=== PATIENT | female | born 1990 | race Caucasian/White ===

== ENCOUNTER 2016-08-05 09:55 | Outpatient (CLI) | payer MEDICAID ==
--- NOTE | 2016-08-05 10:55 | Non Stress Test Report ---
Non Stress Test Datetime Report Generated by CPN: 08/05/2016 10:55 DEMOGRAPHIC Test Number: 1 EGA NST: 34.3 INDICATION Indication for Study: Ordered by Provider; Other Indication for Study (NST) Other: Abdominal and back pain MONITORING Monitor Explained: Monitor Explained; Test Explained; Patient Verbalized Understanding Time on Monitor: 08/05/2016 10:25 Time off Monitor: 08/05/2016 10:54 NST Duration: 29 NST INTERVENTIONS NST Interventions: None Physician Notified NST: Dr Neilsen BABY A: [id number] BABY A Movement : Present Contraction Frequency : None FHR Baseline : 145 Accelerations : 15X15 Variability : Moderate 6-25bpm NST Review: Meets Criteria for Reactive NST NST Review and Verified By : H. Raya, RN NST Results: Reactive NST REPORT Report Trigger: Send Report
[2016-08-05 10:59] LABS: APPEARANCE,URINE SLIGHTLY-CLOUDY; BILIRUBIN,URINE NEGATIVE (NEGATIVE); GLUCOSE, URINE NEGATIVE (NEGATIVE); KETONES,URINE NEGATIVE (NEGATIVE); LEUKOCYTE ESTERASE,URINE NEGATIVE (NEGATIVE); NITRITE,URINE NEGATIVE (NEGATIVE); PROTEIN,URINE NEGATIVE (NEGATIVE); URINE SPECIFIC GRAVITY 1.012; UROBILINOGEN,URINE NEGATIVE mg/dL (<2.0)
[2016-08-05 11:21] LABS: URINE BARBITURATES SCREEN NEGATIVE; URINE METHADONE SCREEN NEGATIVE; URINE PHENCYCLIDINE SCREEN NEGATIVE
[2016-08-05 11:25] LABS: URINE OPIATES LOW UNCONFIRMED POSITIVE
[2016-08-05] MEDS ORDERED: CYCLOBENZAPRINE HCL 10 MG TABLET ONE (11:31)
[2016-08-05] MEDS ORDERED: CYCLOBENZAPRINE HCL 10 MG TABLET PO ONE (12:00)
== END 2016-08-05 11:45 | disposition home or self-care (01) ==
LOC: LC 09:55
PROVIDERS: ATTEND Specialist
DX: O26.893 Other specified pregnancy related conditions, third trimester (principal); R10.9 Unspecified abdominal pain; M54.9 Dorsalgia, unspecified; Z3A.34 34 weeks gestation of pregnancy
CPT/HCPCS: 59025; 81001; 80307; J3490; 36415

== ENCOUNTER 2016-09-06 21:19 | Inpatient (IN) | payer MEDICAID ==
[2016-09-06] MEDS ORDERED: CEFAZOLIN 2 GM/D5W RTU 2 GM/50 ML RTUPB IV ONE (21:43)
[2016-09-06] MEDS ORDERED: RINGERS SOLUTION,LACTATED 1,000 ML IV PRN (21:43)
[2016-09-06] MEDS ORDERED: CITRIC ACID/SODIUM CITRATE ORAL SOLN 15 ML UDCUP ONE (21:43)
[2016-09-06] MEDS ORDERED: PHENYLEPHRINE HCL INJ/PF 10 MG/1 ML SDV ONE (21:54)
[2016-09-06] MEDS ORDERED: ONDANSETRON HCL INJ/PF 4 MG/2 ML SDV ONE (21:54)
[2016-09-06] MEDS ORDERED: OXYTOCIN/NORMAL SALINE 20 UNIT/1,000 ML RTUINJ ONE (21:54)
[2016-09-06] MEDS ORDERED: OXYTOCIN 10 UNIT/ML VIAL ONE (21:54)
[2016-09-06] MEDS ORDERED: MIDAZOLAM 2 MG/2 ML INJ ONE (21:55)
[2016-09-06] MEDS ORDERED: FENTANYL CITRATE INJ/PF 100 MCG/2 ML AMPUL ONE (21:55)
[2016-09-06 21:59] LABS: ABSOLUTE LYMPHOCYTES (AUTO) 3.3 10^3/uL (0.5-4.7); ABSOLUTE MONOCYTES (AUTO) 0.9 10^3/uL (0.1-1.4); ABSOLUTE NEUT (AUTO) 9.5 10^3/uL (1.7-8.2); BASOPHILS % (AUTO) 0.3 % (0-2); EOSINOPHILS % (AUTO) 0.1 % (0-6); HEMATOCRIT 34.7 % (36.0-47.0); HEMOGLOBIN 11.6 g/dL (12.0-15.5); HGB HCT DIFFERENCE 0.1; MEAN CORPUSCULAR HEMOGLOBIN 28.7 pg (27.0-33.4); MEAN CORPUSCULAR HGB CONC 33.5 g/dL (32.0-36.0); MEAN CORPUSCULAR VOLUME 86 fl (80-97); MONOCYTES % (AUTO) 6.3 % (3-13); RED BLOOD COUNT 4.06 10^6/uL (3.72-5.28); RED CELL DISTRIBUTION WIDTH 15.5 % (11.5-14.0); SEGMENTED NEUTROPHILS % (AUTO) 69.3 % (42-78); WHITE BLOOD COUNT 13.7 10^3/uL (4.0-10.5)
--- NOTE | 2016-09-06 23:24 | OPERATIVE REPORT E ---
Operative Report NAME: KALEB MORALES : 1990 AGE: 26Y DATE OF SURGERY: 09/06/2016 ROOM: LR200 PREOPERATIVE DIAGNOSES: 1. A 39-week intrauterine . 2. History of section. 3. Patient in active labor. POSTOPERATIVE DIAGNOSES: 1. A 39-week intrauterine . 2. History of section. 3. Patient in active labor. OPERATION: Repeat low-transverse section. SURGEON: Conor Fortune D.O. PAN DUMPER: None. ANESTHESIA: Spinal. COMPLICATIONS: None. PATHOLOGY: Placenta. ESTIMATED BLOOD LOSS: 600 mL. FINDINGS: 1. A viable male infant at 2214 hours on 09/06/2016. Apgars 8 at one, 9 at five. Weight pending this dictation. 2. Normal-appearing bilateral fallopian tubes and ovaries. 3. 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 DESCRIPTION OF PROCEDURE: The patient was taken to the operating room where she had her spinal anesthesia administered. Once this was done, she was than placed in the dorsal supine position with a leftward tilt upon the operating room table. She was prepped and draped in a normal sterile fashion. A scalpel was then used to make a Pfannenstiel skin incision. The skin incision was carried down through the subcutaneous tissues to the layer of the fascia. The fascia was incised at the midline, and the fascial incision was extended bilaterally using the Bovie cautery. The superior fascial edge was grasped with Edis clamps, elevated, and the rectus muscles dissected off sharply and bluntly. Attention was then turned to the inferior fascial edge, which was elevated and found to be densely adhered to the uterus. This was gently dissected off using the surgeon's fingers and the Bovie cautery. Following this, the rectus muscles were in the midline, perineum identified and entered bluntly with the surgeon's hands. Again, further dissection of the adhesive disease from the anterior abdominal wall/fascia to the lower uterine segment was performed, creating a window in order to perform the low transverse hysterotomy incision which was performed. The infant was found to be in the cephalic position and delivered through this incision without difficulty and atraumatically. Nose and mouth were suctioned. Cord was clamped and cut. The infant was handed off to the awaiting nurses. Cord blood was obtained. The placenta was then manually removed from the uterus. The uterus was then exteriorized and cleared of all clots and debris. The hysterotomy incision was then reapproximated using 2 layers of 1-0 Vicryl in a running locking fashion and following closely with a second layer. Excellent hemostasis was noted. The uterus was then returned to the abdomen. Again the hysterotomy incisions were reinspected and found to have excellent hemostasis. The rectus muscles were then reapproximated using 1-0 Vicryl interrupted sutures and the fascia was then closed using 1-0 Vicryl in a running, non-locking fashion. The subcutaneous space was made hemostatic using Bovie cautery. The skin was then closed with absorbable janusz, covered with an Op-Site, and then with a pressure dressing. At this point in time, the procedure was terminated. All sponge, lap, and needle counts were correct x2. The patient tolerated the procedure well. The patient was taken to recovery room in stable condition. DICTATING PHYSICIAN: Conor Fortune DO [id number] PHY#: [id number] ID: [id number] JOB#: [id number] ACCT: [id number] cc:Conor Fortune D.O. >
[2016-09-06] MEDS ORDERED: METHYLERGONOVINE MALEATE INJ/PF 0.2 MG/1 ML AMPULE ONE (23:35)
[2016-09-07] MEDS ORDERED: FENTANYL CITRATE INJ/PF 100 MCG/2 ML AMPUL ONE ×2 (00:13→20:55)
[2016-09-07] MEDS ORDERED: ONDANSETRON HCL INJ/PF 4 MG/2 ML SDV ONE ×2 (00:50→19:19)
[2016-09-07] MEDS ORDERED: HYDROMORPHONE HCL INJ/PF 2 MG/ML AMPULE ONE (01:19)
--- NOTE | 2016-09-07 01:41 | Delivery Summary ---
Del Sum A-C Datetime Report Generated by CPN: 09/07/2016 01:41 DELIVERY PERSONNEL DELIVERY PERSONNEL: [phone] Delivery Doctor:: Conor Fortune DO Anesthesiologist:: Phi Duarte MD Labor and Delivery Nurse:: Meli Chadwick RN Nursery Nurse:: STEVEN Bowden Yard Jacker/ELEVATORS INSPECTOR: ST [facility] Yard Jacker/ELEVATORS INSPECTOR: Nora Morales, ORTHOPEDIC NURSE Additional Personnel: : Nellie Raya CNA MATERNAL INFORMATION Delivery Anesthesia: Spinal Medications After Delivery: Pitocin Drip 20 Units/1000ml NSS; Methergine 0.2mg IM Estimated Blood Loss (ml): 600 Maternal Complications: Other LABOR SUMMARY EDC: 09/13/2016 00:00 No. Babies in Womb: 1 Labor Anesthesia: None LABOR INFORMATION Reason for Induction: Not Applicable Oxytocin: N/A Group B Beta Strep: Not Done Steroids Given: None Reason Steroids Not Administered: Not Applicable MEMBRANES Membranes Rupture Method: Spontaneous Rupture of Membranes: 09/06/2016 21:47 Length of Rupture (hr): 0.45 Amniotic Fluid Color: Moderate Meconium Amniotic Fluid Amount: Small Amniotic Fluid Odor: Normal STAGES OF LABOR Stage 3 hr: 0 Stage 3 min: 1 CSECTION DELIVERY Primary Indication: Previous Vertical Uterine Scar Secondary Indication: Repeat Elective CSection Urgency: Emergency CSection Incidence: Repeat Labor: Labor Elective: N/A BABY A INFORMATION Infant Delivery Date/Time: 09/06/2016 22:14 Method of Delivery: Born in Route : No : N/A Forceps: N/A Vacuum Extraction: N/A Shoulder Dystocia : No PRESENTATION/POSITION BABY A Presentation: Cephalic Cephalic Presentation: Vertex PLACENTA INFORMATION BABY A Placenta Delivery Time : 09/06/2016 22:15 Placenta Method of Delivery: Manual Removal Placenta Status: Delivered SCORES BABY A Heart Rate 1 min: >100 bpm Resp Effort 1 min: Good Cry Reflex Irritability 1 min: Cough or Sneeze or Pulls Away Muscle Tone 1 min: Active Motion Color 1 min: Blue/Pale Resuscitation Effort 1 min: N/A SCORE 1 MIN: 8 Heart Rate 5 min: >100 bpm Resp Effort 5 min: Good Cry Reflex Irritability 5 min: Cough or Sneeze or Pulls Away Muscle Tone 5 min: Active Motion Color 5 min: Blue/Pale SCORE 5 MIN: 8 INFORMATION BABY A Gestational Age at Delivery: 39.0 Gestational Status: Full Term- 39- 40.6 Weeks Infant Outcome : Liveborn Infant Condition : Stable Sex: Male IDENTIFICATION BABY A Verification Date/Time: 09/06/2016 22:21 ID Band Number: [id number] Mother's Name Verified: Yes Infant RN Verifying Infant: Pavel Guzman RN Additional Verifying Personnel: Erasto Raya RN WEIGHT/LENGTH BABY A Birthweight (gm): 3395 Weight (lb): 7 Infant Weight (oz): 8 Length (in): 20.00 Length (cm): 50.80 CORD INFORMATION BABY A No. Cord Vessels: 3 Nuchal Cord : N/A Cord Blood Taken: Yes-For Storage (Mom's Blood type +) ASSESSMENT BABY A Infant Complications: Meconium Physical Findings at Delivery: Within Normal Limits Infant Respirations: Appears Normal Skin to Skin: Yes Unified Communications Engineer/ALS Called : No Infant Care By: Nicolette Giraldo RN _ Tasha Bradley, OPERATING ROOM NURSE Transferred To: [facility]
--- NOTE | 2016-09-07 02:52 | Admission Physical ---
Datetime Report Generated by CPN: 09/07/2016 02:51 CURRENT ADMISSION Chief Complaint: Uterine Contractions Indication for Induction: Not Applicable Admit Plan: Admit to Unit; Initiate Section Protocol ALLERGIES Medication Allergies: No Medication Allergies: No Known Drug Allergies (08/05/2016) Medication Allergies: No Known Drug Allergies (08/25/2014) Latex: No Latex Allergies Food Allergies: None Environmental Allergies: None OBSTETRICAL HISTORY EDC: 09/13/2016 00:00 : 2 Para: 1 Term: 1 : 0 SAB: 0 IAB: 0 Ectopic: 0 Livin Cesareans: 1 VBACs: 0 Multiple Births: 0 Gestational Diabetes: No Rh Sensitization: No Incompetent Cervix: No YOLANDA: No Infertility: No ART Treatment: No Uterine Anomaly: No IUGR: No Hx Previous C/S: Yes Macrosomia: No Hx Loss/Stillborn: No PIH: No Hx : No Placenta Previa/Abruption: No Depression/PP Depression: No PTL/PROM: No Post Hemorrhage: No Current Procedures: Ultrasound Obstetrical History Comments: 09/2012 - 8lbs 1oz, Primary c/sect at 41wks, [place], FTP, bladder repair d/t to laceration from c/section G2 - current - Limited PNC, 1 visit on 07/04/16 SEE RECORDS Alcohol: No Marijuana : No Cocaine: No Other Illicit Drugs: Yes Illicit Drug Comments: Opiate and herion abuse Cigarettes: Current Everyday Smoker. 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 Surgery: No Heart Disease: No Hosp/Surgery: Yes Autoimmune Disorder: No Anesthetic Complications: No Kidney Disease: No Abnormal Pap Smear: No Neuro/Epilepsy: No Psychiatric Disorders: No Other Medical Diseases: No Hepatitis/Liver Disease: No Significant Family History: No Varicosities/Phlebitis: No Trauma/Violence : No Thyroid Dysfunction: No Medical History Comments: Anxiety and depression Hospitalized for c/section INFECTIOUS HISTORY Gonorrhea: No Genital Herpes: No Chlamydia: No Tuberculosis: No Syphilis: No Hepatitis: No HIV/AIDS Exposure: No Rash or Viral Illness: No HPV: No PHYSICAL EXAM General: Normal HEENT: Normal Neurologic: Normal Thyroid: Deferred Heart: Normal Lungs: Normal Breast: Deferred Back: Normal Abdomen: Normal Genitourinary Exam: Normal Extremities: Normal DTRs: Normal Pelvic Type: Adequate Vital Signs: Reviewed; Within Normal Limits VAGINAL EXAM Dilatation: 4 Effacement: 90 Station: 0 MEMBRANES Membranes: Intact FETUS A EGA: 39.0 Monitoring: External US FHR- Baseline: 140 Variability: Moderate 6-25bpm Accelerations: 15X15 Decelerations: None FHR Category: Category I Admit Comment: Will admit for Repeat C/S secondary to active labor PLANS FOR LABOR AND DELIVERY Labor and Delivery: None Pain Management: None Feeding Preference: Breast Benefit of Breast Feed Discussed: Yes Circumcision: Yes INFORMED CONSENT Signature: with User ID: [email or web address]
[2016-09-07] MEDS ORDERED: MEASLES,MUMPS&RUBELLA VACC/PF 0.5 ML VIAL SUBCUT PRN (02:57)
[2016-09-07] MEDS ORDERED: DIPH/PERTUSS(ACELL)/TETANUS VAC/PF 0.5 ML SYR (>=10YO) IM PRN (02:57)
[2016-09-07] MEDS ORDERED: ACETAMINOPHEN 325 MG TABLET PO PRN (02:57)
[2016-09-07] MEDS ORDERED: PROMETHAZINE HCL INJ 25 MG/1 ML VIAL IV PRN ×3 (02:57→20:55)
[2016-09-07] MEDS ORDERED: SIMETHICONE 80 MG TAB.CHEW PO PRN (02:57)
[2016-09-07] MEDS ORDERED: CEFAZOLIN 2 GM/D5W RTU 2 GM/50 ML RTUPB IV SCH (03:45)
[2016-09-07] MEDS: HYDROMORPHONE HCL INJ/PF 2 MG/ML AMPULE IV PRN ×2 (03:50→07:25)
--- NOTE | 2016-09-07 03:59 | RADIOLOGY REPORT (SQ) ---
EXAM DESCRIPTION: CYSTOGRAM MINIMUM 3 VIEW COMPLETED DATE/TIME: 09/07/2016 2:56 am REASON FOR STUDY: Blood in marsh after c/s COMPARISON: None. FLUOROSCOPY TIME: FLUORO TIME: 0 6 images saved to PACS. LIMITATIONS: None. PROCEDURE: Presumed retrograde administration of contrast in the urinary bladder by performing clini meli. FINDINGS: Marsh catheter bulb. Approximate 1.5 cm diverticular collection of contrast this small r esidual opacity at the right paracentral, superior aspect of the urinary bladder on pre and post void views could be developmental or due to an everted ureterocele ; cannot exclude loculated bladder wal l injury. Likely small reflux of contrast in bilateral distal ureters. Further interpreted by the p erforming clinician at time of examination. Consider CT correlation as clinically warranted. IMPRESSION: As above. COMMENT: Quality ID [id number]: Final reports for procedures using fluoroscopy that document radiation exp osure indices, or exposure time and number of fluorographic images (if radiation exposure indices are not available) TECHNICAL DOCUMENTATION: JOB ID: [id number] [employer]- All Rights Reserved
--- NOTE | 2016-09-07 04:08 | CONSULTATION REPORT E ---
Consultation Report NAME: KALEB MORALES : 1990 AGE: 26Y DATE: 09/06/2016 218 A TO: CORY DEE M.D. FROM: Requesting Physician IMPRESSION: 1. Gross hematuria, most likely due to blunt trauma at the time of . 2. No evidence of extravasation based on my read of the cystogram filling and drainage films. RECOMMENDATIONS: 1. I would maintain the Yeh catheter for 7 days. 2. Hand irrigate the Yeh as needed with normal saline. CONSULTATION: Dr. Fortune asked me to see the patient for evaluation of gross hematuria. She had had a section performed approximately 2 hours ago. She had had a previous section 4 years ago and had an injury to her bladder, which was repaired and she had a Yeh catheter in for a week or so after that procedure. Dr. Fortune states that there was dense scar tissue from that previous surgery, but no evidence of an injury to the bladder per se. With closure, he closed the hysterotomy and rectus muscles with 1-0 Vicryl. It was necessary to do some blunt and sharp dissection due to scar tissue from her previous surgery. She currently has a 14-Chadian Yeh indwelling. The Yeh had been changed, but the urine remained bloody. SOCIAL HISTORY: As noted in her admission H and P, which I will not recount in this dictation. FAMILY HISTORY: As noted in her admission H and P, which I will not recount in this dictation. REVIEW OF SYSTEMS: As noted in her admission H and P, which I will not recount in this dictation. PAST MEDICAL HISTORY: As noted in her admission H and P, which I will not recount in this dictation. PHYSICAL EXAMINATION: GENERAL: The patient is alert, oriented, in no acute distress. VITAL SIGNS: Vital signs are as listed in the nurses' notes. HEAD, EYES, EARS, NOSE, THROAT, AND NECK: Normal. GASTROINTESTINAL: Abdomen is somewhat distended, which is compatible with her gravid status. GENITOURINARY: The labia are swollen, but otherwise appear normal. No abnormal vaginal discharge. A total of 300 mL contrast was instilled by drip infusion into the bladder. With filling, there was no obvious extravasation. There were filling defects in the bladder compatible with blood clots. On drainage films, there was no evidence of extravasation of contrast to my read. There was a small diverticulum-appearing area in the dome on the right side that measured about 2cm x 2cm. This area appeared to drain when the bladder was drained. I did not appreciate any evidence of extravasation. The patient's 14-Yeh was removed and a 20-Yeh was inserted. Some old blood clots were irrigated. The bladder was irrigated until clear. DICTATING PHYSICIAN: CORY DEE M.D. [id number] PHY#: [id number] ID: [id number] JOB#: [id number] ACCT: [id number] cc:Porsha Fox M.D. > MTDD
[2016-09-07] MEDS: IBUPROFEN 800 MG TABLET PO SCH ×3 (06:09→17:26)
[2016-09-07 07:10] LABS: HEMATOCRIT 25.3 % (36.0-47.0); HGB HCT DIFFERENCE -0.4; MEAN CORPUSCULAR HEMOGLOBIN 28.2 pg (27.0-33.4); MEAN CORPUSCULAR HGB CONC 32.7 g/dL (32.0-36.0); MEAN CORPUSCULAR VOLUME 87 fl (80-97); RED BLOOD COUNT 2.92 10^6/uL (3.72-5.28); RED CELL DISTRIBUTION WIDTH 15.1 % (11.5-14.0); WHITE BLOOD COUNT 13.4 10^3/uL (4.0-10.5)
[2016-09-07 07:11] LABS: HEMOGLOBIN 8.3 g/dL (12.0-15.5)
[2016-09-07] MEDS: DOCUSATE SODIUM 100 MG CAPSULE PO SCH ×2 (09:56→17:26)
[2016-09-07] MEDS: PRENATAL VITAMIN W-O CA NO5/FE FUMARATE/FA CAPSULE PO SCH (09:56)
[2016-09-07] MEDS: CEFAZOLIN 2 GM/D5W RTU 2 GM/50 ML RTUPB IV SCH ×2 (09:56→17:25)
[2016-09-07] MEDS ORDERED: MORPHINE SULFATE 10 MG/ML INJ IM PRN (10:15)
[2016-09-07] MEDS ORDERED: ROCURONIUM BROMIDE INJ 50 MG/5 ML VIAL IV ONE (10:27)
[2016-09-07] MEDS ORDERED: SUCCINYLCHOLINE CHLORIDE INJ 200 MG/10 ML VIAL ONE (10:27)
[2016-09-07] MEDS: MORPHINE SULFATE 10 MG/ML INJ IM PRN ×3 (10:40→17:27)
--- NOTE | 2016-09-07 16:54 | PROGRESS NOTE E ---
Progress Note NAME: KALEB MORALES : 1990 AGE: 26Y DATE: 09/07/2016 ROOM: 218 SUBJECTIVE: I saw the patient earlier today and performed a cystogram. I thought she had a small diverticulum in the dome of her bladder as the result of prior bladder injury from a section four years ago. When I saw her midday, the Radiologist felt that there may be either a diverticulum or perhaps some extravasation. Her urine is still blood tinged. I reviewed the cystogram films with the Radiologist and I agree that on the computer images that there appears to be a small amount of residual faint contrast on the right side of the bladder. The area in the presumed diverticulum did drain out but the fact that there is still some faint evidence of contrast to the right of this area raises the suspicion that she has a bladder tear. Accordingly, I discussed the findings with the patient and I recommended cystoscopy to examine this area. If the area has been closed with suture and there is no sign of any hole in the bladder per say, then I think it is reasonable to maintain Yeh catheter drainage for a week and then repeat the cystogram. On the other hand, if there is any evidence of a hole in the bladder that has not been repaired, then I recommended and patient agrees with exploring the area and repairing the bladder injury. I discussed this with Dr. Darby Martinez and she agrees and will be available to help with the patient's surgery if an open procedure is necessary. Her vital signs are stable. Her pulse is stable with what it was earlier today at 86. At noon it was 89 and her blood pressure is normal at 131/84. Her hemoglobin has dropped from 11.[address] Martinez said this is quite normal in ladies having a section and she felt that higher number was most likely due to hemoconcentration. I will have a unit cross matched and available but will not transfuse her unless necessary. Her surgery is scheduled for 8 p.m. today. She had eaten when I saw her at 11:45 this morning so since it is not an emergency, her surgery is being delayed for 8 hours postop. DICTATING PHYSICIAN: CORY DEE M.D. [id number] PHY#: [id number] ID: [id number] JOB#: [id number] ACCT: [id number] cc: >
[2016-09-07] MEDS: DEXTROSE 5%-1/2 NORMAL SALINE 1,000 ML IV PRN (17:28)
[2016-09-07] MEDS ORDERED: MIDAZOLAM 2 MG/2 ML INJ ONE (19:18)
[2016-09-07] MEDS ORDERED: FENTANYL CITRATE INJ/PF 250 MCG/5 ML AMPULE ONE (19:18)
[2016-09-07] MEDS ORDERED: DEXAMETHASONE SOD PHOSPHATE INJ 4 MG/1 ML VIAL ONE (19:18)
[2016-09-07] MEDS ORDERED: MORPHINE SULFATE 10 MG/ML INJ ONE (19:19)
[2016-09-07] MEDS ORDERED: PROPOFOL INJ 200 MG/20 ML VIAL IV ONE (19:19)
[2016-09-07 19:45] LABS: ANION GAP 5 (5-19); BLOOD UREA NITROGEN 5 mg/dL (7-20); CALCIUM 8.3 mg/dL (8.4-10.2); CARBON DIOXIDE 24 mmol/L (22-30); CHLORIDE 104 mmol/L (98-107); CREATININE RESULT 0.59 mg/dL (0.52-1.25); GLUCOSE 80 mg/dL (75-110); SODIUM 132.9 mmol/L (137-145)
[2016-09-07] MEDS ORDERED: METHYLERGONOVINE MALEATE INJ/PF 0.2 MG/1 ML AMPULE ONE (20:18)
[2016-09-07] MEDS ORDERED: METHYLENE BLUE INJ/PF 10 MG/1 ML SDV ONE (20:48)
[2016-09-07] MEDS ORDERED: MORPHINE SULFATE 10 MG/ML INJ IV PRN (20:55)
[2016-09-07] MEDS ORDERED: ACETAMINOPHEN 100 ML IV ONE (20:55)
[2016-09-07] MEDS ORDERED: FENTANYL CITRATE INJ/PF 100 MCG/2 ML AMPUL IV PRN ×3 (20:55)
[2016-09-07] MEDS ORDERED: DIPHENHYDRAMINE HCL 50 MG/ML VIAL IV PRN (20:55)
[2016-09-07] MEDS ORDERED: MEPERIDINE HCL/PF INJ 25 MG/1 ML DISP.SYRIN IV PRN (20:55)
[2016-09-07] MEDS ORDERED: RINGERS SOLUTION,LACTATED 1,000 ML IV PRN (22:41)
[2016-09-07] MEDS: FENTANYL CITRATE INJ/PF 100 MCG/2 ML AMPUL ONE ×2 (22:46→22:58)
[2016-09-07] MEDS ORDERED: CEFAZOLIN INJ 1 GM VIAL ONE (23:16)
[2016-09-07] MEDS ORDERED: IBUPROFEN INJ 800 MG/8 ML VIAL IV ONE (23:23)
--- NOTE | 2016-09-07 23:38 | OPERATIVE REPORT E ---
Operative Report NAME: NANY MORALES : 1990 AGE: 26Y DATE OF SURGERY: 09/07/2016 ROOM: 218 PREOPERATIVE DIAGNOSIS: Rule out bladder injury. POSTOPERATIVE DIAGNOSIS: Bladder injury with major laceration. OPERATION: 1. Cystoscopy. 2. Exploration of the space of Retzius with major repair of bladder injury, with cystorrhaphy. Dr. Darby Martinez will dictate her portion of the surgery for closure of the uterus. SURGEON: CORY DEE M.D. LENS CLEANER: Darby Martinez MD ESTIMATED BLOOD LOSS: She had 500 mL of old blood in her vagina due to uterine atony. COMPLICATIONS: None. SPECIMENS: None. INDICATIONS: Nany is a 26-year-old lady who had a section performed [address] Conor Fortune. She had hematuria following this procedure. A cystogram was performed which subsequently was read as a possible extravasation. Cystoscopy is planned to determine if she had an injury to her bladder, and if so the extent of the injury. I discussed the various options for treatment, as well as risks and benefits. Specifically, I talked about the possibility of failure to cure the problem, need for additional surgery, bleeding, infection, need to convert to an open operation, and injury to surrounding structures. Nany appeared to understand the various options for treatment as well as risks and benefits and agreed to proceed with the proposed surgery. OPERATION: After Nany was identified in the preop holding area, she was brought to the operating room. A timeout was performed, where the correct patient and procedure were confirmed. She was then given general endotracheal anesthesia. She was next prepped and draped in routine sterile manner. FLEXIBLE CYSTOSCOPY: A flexible cystoscope was inserted per urethra. The bladder was carefully examined. There was a linear row of suture across the dome of the bladder, and there appeared to be a defect between the suture. Accordingly, it was deemed necessary to exposure the space of Retzius and to remove the sutures and to repair the bladder and uterus. MAJOR CYSTORRHAPHY: The existing abdominal suture material was removed. The space of Retzius was entered. The suture material that had been used to close the uterus was removed. This showed a defect that extended the entire length of the dome of the bladder and measured approximately 12 cm in length. A plane was developed between the uterus and the bladder, so that a tension-free closure can be performed. The trigone was examined and was well away from the area of the bladder injury. The bladder was irrigated with sterile water. The mucosa was closed with a running suture of 4-0 Monocryl. Imbricating cutaneous suture of 3-0 Monocryl was used to approximate the seromuscular portion of the bladder. Sterile water was used to fill the Yeh. With a full bladder, there was no evidence of leak. The Yeh was then placed to gravity drainage. The remainder of the dictation will be dictated by Dr. Darby Martinez. DICTATING PHYSICIAN: CORY DEE M.D. [id number] PHY#: [id number] ID: [id number] JOB#: [id number] ACCT: [id number] cc:Porsha Fox M.D. MARK MCCLURE, M.D. >
[2016-09-08] MEDS: MORPHINE SULFATE 10 MG/ML INJ IM PRN ×2 (00:43→04:00)
--- NOTE | 2016-09-08 02:53 | OPERATIVE REPORT E ---
Operative Report NAME: KALEB MORALES : 1990 AGE: 26Y DATE OF SURGERY: 09/07/2016 ROOM: 218 PREOPERATIVE DIAGNOSIS: Incidental bladder injury. POSTOPERATIVE DIAGNOSIS: Incidental bladder injury. SURGEON: KISHA HARDWICK M.D. Kade Smiley MD, from Urology ANESTHESIA: Georgina Mederos MD, with general endotracheal. FINDINGS ON CYSTOSCOPY: Multiple sutures noted in the dome of the bladder, with obvious cystotomy in the right lateral aspect of the dome of the bladder. ESTIMATED BLOOD LOSS: Approximately 100 mL. COMPLICATIONS: None. PROCEDURE: Cystoscopy and repair of cystotomy, performed by Dr. Smiley; please see his note for operative details and re-closure of hysterotomy performed by Dr. Hardwick. INDICATIONS: The patient had a section performed by Dr. Fortune with [facility], and on the previous evening, it was noted that there was a significant amount of hematuria in the Yeh catheter after the section. A cystogram was performed last evening and showed what was thought to be an intact bladder at the time. Earlier today Dr. Smiley took another look at the films with the radiologist and did find an area of extravasation on the dome of the bladder that was thought to be a possible injury, and therefore the patient was consented for the procedure for a cystoscopy to see if there was indeed an injury as well as repair as needed. At the beginning of the case, after the patient was placed in dorsal lithotomy position, it was noted there was a significant amount of blood clot that was coming from the vagina. This was explored by myself, and the blood clots were cleared prior to the beginning of the case. PROCEDURE IN DETAIL: The patient was taken to the operating room, prepared and draped in normal fashion in a dorsal lithotomy position. Under sterile conditions, Dr. Smiley performed a flexible cystoscopy. Please see his operative note for details. It was noted on the performance of this scope, that there were indeed multiple sutures which looked to extend completely across the dome of the bladder, and it was obvious that there were Vicryl sutures coming through. Therefore, the attention was then turned to the abdominal portion of the case, and gloves were changed by Dr. Smiley, and I scrubbed in. The Pfannenstiel skin incision was opened using suture scissors, and the rest of the fascia suture as well as the rectus muscles were removed with Hightower scissors, until the uterus could be exteriorized. The uterus was exteriorized with minimal difficulty, and inspection of the bladder noted it consistent with the findings on the cystoscopy that the Vicryl suture was indeed through the dome of the bladder. These sutures were moved from the hysterotomy, and the cystotomy was noted to extend almost the full length of the bladder. Once the sutures were removed, we then began with careful identification of the structures, and we were able to successfully find the plane of the vesicoureteral junction and peel the bladder away from the uterus adequately. Once this was performed, and adequate instruments were used to kade the dome of the bladder successfully; again, see Dr. Smiley's operative report for details of this portion of the case. I identified the hysterotomy for re-closure, beginning on the right lateral angle. This was closed with 0-Monocryl in a running locked fashion. A second layer of the same suture was to imbricate to ensure hemostasis. Once this was completed, we had turned our attention to repair of the cystotomy, and this was done by Dr. Smiley. Once the structures were found to be hemostatic and intact, the uterus was then returned to the abdomen. The peritoneal cavity was cleared of clots and debris. The rectus muscle and peritoneum were reapproximated with 2 mattress stitches of 2-0 chromic. The fascia was closed with 0-Vicryl. The subcutaneous layer was closed with plain cat gut, and the skin was closed with 4-0 Vicryl. The patient tolerated the procedure well. Sponge, lap and needle counts were correct x2. The patient was taken to recovery in stable condition. DICTATING PHYSICIAN: KISHA HARDWICK M.D. [id number] PHY#: [id number] ID: [id number] JOB#: [id number] ACCT: [id number] cc:KISHA HARDWICK M.D. >
[2016-09-08] MEDS: CEFAZOLIN 2 GM/D5W RTU 2 GM/50 ML RTUPB IV SCH ×5 (03:24→21:00)
[2016-09-08] MEDS: IBUPROFEN 800 MG TABLET PO SCH ×5 (05:18→23:21)
[2016-09-08] MEDS: DEXTROSE 5%-1/2 NORMAL SALINE 1,000 ML IV PRN (06:17)
[2016-09-08 06:22] LABS: ABSOLUTE LYMPHOCYTES (AUTO) 1.5 10^3/uL (0.5-4.7); ABSOLUTE MONOCYTES (AUTO) 0.6 10^3/uL (0.1-1.4); ABSOLUTE NEUT (AUTO) 12.1 10^3/uL (1.7-8.2); BASOPHILS % (AUTO) 0.1 % (0-2); HEMATOCRIT 24.8 % (36.0-47.0); HEMOGLOBIN 8.2 g/dL (12.0-15.5); HGB HCT DIFFERENCE -0.2; LYMPHOCYTES % (AUTO) 10.7 % (13-45); MEAN CORPUSCULAR HEMOGLOBIN 28.2 pg (27.0-33.4); MEAN CORPUSCULAR HGB CONC 32.9 g/dL (32.0-36.0); MEAN CORPUSCULAR VOLUME 86 fl (80-97); MONOCYTES % (AUTO) 4.4 % (3-13); RED BLOOD COUNT 2.89 10^6/uL (3.72-5.28); RED CELL DISTRIBUTION WIDTH 15.2 % (11.5-14.0); SEGMENTED NEUTROPHILS % (AUTO) 84.8 % (42-78); WHITE BLOOD COUNT 14.2 10^3/uL (4.0-10.5)
[2016-09-08] MEDS: OXYCODONE-ACETAMINOPHEN 5-325 MG TABLET PO PRN ×5 (06:25→23:51)
[2016-09-08 06:39] LABS: ALANINE AMINOTRANSFERASE 16 U/L (9-52); ALBUMIN 2.1 g/dL (3.5-5.0); ALKALINE PHOSPHATASE 119 U/L (38-126); ASPARTATE AMINO TRANSFERASE 34 U/L (14-36); BILIRUBIN,DIRECT 0.2 mg/dL (0.0-0.4); BILIRUBIN,TOTAL 0.2 mg/dL (0.2-1.3); BLOOD UREA NITROGEN 4 mg/dL (7-20); CALCIUM 7.9 mg/dL (8.4-10.2); CHLORIDE 108 mmol/L (98-107); CREATININE RESULT 0.56 mg/dL (0.52-1.25); GLUCOSE 128 mg/dL (75-110); POTASSIUM 3.9 mmol/L (3.6-5.0); TOTAL PROTEIN 4.6 g/dL (6.3-8.2)
[2016-09-08 06:48] LABS: ANION GAP 5 (5-19); CARBON DIOXIDE 21 mmol/L (22-30); SODIUM 133.8 mmol/L (137-145)
--- NOTE | 2016-09-08 07:04 | PROGRESS NOTE E ---
Progress Note NAME: KALEB MORALES : 1990 AGE: 26Y DATE: 09/08/2016 ROOM: 218 SUBJECTIVE: The patient had repair of a bladder injury and closure of her uterine incision approximately 8 hours ago. She received 1 unit of packed red cells. This morning, her hemoglobin is 8.2, white count 14,200. OBJECTIVE: VITAL SIGNS: Temperature 97.9, pulse 80, blood pressure 120/80, respirations 18. ABDOMEN/PELVIC: Her incision is closed beneath a Steri-Drape. There is no evidence of active bleeding. There is no evidence of new abdominal swelling. DATA: Her urine output is 1900 mL. ASSESSMENT: She is stable at this point. PLAN: I recommend a cystogram on 09/17/2016. If there is no evidence of extravasation, her Yeh may be removed at that point. She will followup with the [facility]rology [facility] after she has had her cystogram to recheck her urine and discuss followup. DICTATING PHYSICIAN: CORY DEE M.D. [id number] PHY#: [id number] ID: [id number] JOB#: [id number] ACCT: [id number] cc: >
--- NOTE | 2016-09-08 09:49 | PDOC PROGRESS REPORT ---
Subjective Subjective:: Pt reports good pain control, no n/v. No new complaints Physical Exam - Physical Exam Vital Signs: Temp Pulse Resp BP Pulse Ox 98.1 F 90 14 113/66 99 09/08/16 08:32 09/08/16 08:32 09/08/16 08:32 09/08/16 08:32 09/08/16 08:32 Intake & Output 09/07/16 09/08/16 09/09/16 06:59 06:59 06:59 Intake Total 5695 Output Total 5950 Balance -255 Weight 58.18 kg General appearance: PRESENT: no acute distress, cooperative, well-developed - Incision bandage is clean/dry/intact Result Laboratory Results: 09/08/16 05:15 09/08/16 05:15 09/06/16 09/06/16 09/07/16 21:44 21:44 19:15 WBC 13.7 H RBC 4.06 Hgb 11.6 L Hct 34.7 L MCV 86 MCH 28.7 MCHC 33.5 RDW 15.5 H Plt Count 272 Seg Neutrophils % 69.3 Lymphocytes % 24.0 Monocytes % 6.3 Eosinophils % 0.1 Basophils % 0.3 Absolute Neutrophils 9.5 H Absolute Lymphocytes 3.3 Absolute Monocytes 0.9 Absolute Eosinophils 0.0 Absolute Basophils 0.0 Sodium 132.9 L Potassium 4.0 Chloride 104 Carbon Dioxide 24 Anion Gap 5 BUN 5 L Creatinine 0.59 Est GFR ( Amer) > 60 Est GFR (Non-Af Amer) > 60 Glucose 80 Calcium 8.3 L Total Bilirubin AST ALT Alkaline Phosphatase Total Protein Albumin Blood Type A POSITIVE Antibody Screen NEGATIVE 09/08/16 09/08/16 05:15 05:15 WBC 14.2 H RBC 2.89 L Hgb 8.2 L Hct 24.8 L MCV 86 MCH 28.2 MCHC 32.9 RDW 15.2 H Plt Count 238 Seg Neutrophils % 84.8 H Lymphocytes % 10.7 L Monocytes % 4.4 Eosinophils % 0.0 Basophils % 0.1 Absolute Neutrophils 12.1 H Absolute Lymphocytes 1.5 Absolute Monocytes 0.6 Absolute Eosinophils 0.0 Absolute Basophils 0.0 Sodium 133.8 L Potassium 3.9 Chloride 108 H Carbon Dioxide 21 L Anion Gap 5 BUN 4 L Creatinine 0.56 Est GFR ( Amer) > 60 Est GFR (Non-Af Amer) > 60 Glucose 128 H Calcium 7.9 L Total Bilirubin 0.2 AST 34 ALT 16 Alkaline Phosphatase 119 Total Protein 4.6 L Albumin 2.1 L Blood Type Antibody Screen Impressions: Cystogram 09/07/16 00:00 IMPRESSION: As above. Marsh cath urine is clear and ~200cc per hour Assessment & Plan - Diagnosis (1) Bladder and urethra injury without mention of open wound into cavity Qualifiers: Encounter type: initial encounter Qualified Code(s): S37.20XA - Unspecified injury of bladder, initial encounter; S37.30XA - Unspecified injury of urethra, initial encounter Is this a current diagnosis for this admission?: Yes (2) Delivery by emergency caesarean section Is this a current diagnosis for this admission?: Yes - Time Time Spent with patient: 15-24 minutes Medications reviewed and adjusted accordingly: Yes Anticipated discharge: Home Within: within 48 hours - Will continue routine postop care, maintain marsh cath in place, continue Abx Plan d/c within the next 24-48 hours
[2016-09-08] MEDS: PRENATAL VITAMIN W-O CA NO5/FE FUMARATE/FA CAPSULE PO SCH (10:09)
[2016-09-08] MEDS: OXYBUTYNIN CHLORIDE 5 MG TABLET PO SCH ×2 (10:09→17:48)
[2016-09-08] MEDS: DOCUSATE SODIUM 100 MG CAPSULE PO SCH ×2 (10:09→17:48)
[2016-09-09] MEDS: CEFAZOLIN 2 GM/D5W RTU 2 GM/50 ML RTUPB IV SCH ×2 (03:32→09:55)
[2016-09-09] MEDS: IBUPROFEN 800 MG TABLET PO SCH ×4 (05:34→23:33)
[2016-09-09] MEDS: DOCUSATE SODIUM 100 MG CAPSULE PO SCH ×2 (09:44→18:26)
[2016-09-09] MEDS: PRENATAL VITAMIN W-O CA NO5/FE FUMARATE/FA CAPSULE PO SCH (09:45)
[2016-09-09] MEDS: OXYBUTYNIN CHLORIDE 5 MG TABLET PO SCH ×2 (09:45→18:26)
[2016-09-09] MEDS: OXYCODONE-ACETAMINOPHEN 5-325 MG TABLET PO PRN ×3 (09:46→20:18)
--- NOTE | 2016-09-09 10:54 | PDOC DISCHARGE SUMMARY ---
General - Admit/Disc Date/PCP Admission Date/Primary Care Provider: 09/06/16 21:48 Discharge Date: 09/09/16 - Discharge Diagnosis (1) Anxiety and depression Is this a current diagnosis for this admission?: Yes (2) Bladder and urethra injury without mention of open wound into cavity Is this a current diagnosis for this admission?: Yes (3) Delivery by emergency caesarean section Is this a current diagnosis for this admission?: Yes (4) Insufficient antepartum care Is this a current diagnosis for this admission?: Yes (5) Opiate dependence Is this a current diagnosis for this admission?: Yes (6) Is this a current diagnosis for this admission?: Yes - Additional Information Resuscitation Status: Full Code Home Medications: Cyclobenzaprine HCl [Flexeril 10 mg Tablet] 10 mg PO TIDP PRN 08/05/16 History of Present Illness History of Present Illness: KALEB MORALES is a 26 year old female Hospital Course Hospital Course: underwent an emergent repeat c/section secondary to active labor with significant bladder adhesions. urology consult performed and a subsequent procedure for cystotomy repair and reclosure of hysterotomy performed on POD # 1. marsh left in [address]. unremarkable course after second procedure. Physical Exam - Physical Exam Vital Signs: Temp Pulse Resp BP Pulse Ox 97.5 F 87 16 122/94 H 100 09/09/16 08:08 09/09/16 08:08 09/09/16 08:08 09/09/16 08:08 09/09/16 08:08 Intake & Output 09/08/16 09/09/16 09/10/16 06:59 06:59 06:59 Intake Total 5695 1060 Output Total 5950 600 Balance -255 460 Weight 58.18 kg General appearance: PRESENT: no acute distress Head exam: PRESENT: atraumatic Gentrourinary exam: PRESENT: ecchymosis, erythema Result Laboratory Results: 09/08/16 05:15 09/08/16 05:15 09/06/16 21:44 Blood Type A POSITIVE Antibody Screen NEGATIVE Impressions: Cystogram 09/07/16 00:00 IMPRESSION: As above. Plan Discharge Plan: discharge home with plan for cystogram a week from tomorrow per urology. will arrange follow up with urology after cystogram. Time Spent: Less than 30 Minutes
--- NOTE | 2016-09-09 10:59 | PROGRESS NOTE E ---
Progress Note NAME: KALEB MORALES : 1990 AGE: 26Y DATE: 09/09/2016 ROOM: 218 SUBJECTIVE: The patient is doing well from a urological standpoint. Her Yeh is draining well. Her vital signs are stable with the exception that her blood pressure is 122/94. Her hemoglobin was stable yesterday at 8.2. PLAN: I am signing off at this point. I discussed the operation and expected postop recovery with the patient and her partner. She should have cystogram on September 17. If this is normal her Yeh can be removed. She should also have a followup with the urology clinic to make sure that her urine was fine. DICTATING PHYSICIAN: CORY DEE M.D. [id number] PHY#: [id number] ID: [id number] JOB#: [id number] ACCT: [id number] cc: >
[2016-09-09] MEDS ORDERED: NA PHOS,M-B/NA PHOS,DI-BA (ADULT) 133 ML ENEMA PR PRN (13:49)
[2016-09-09] MEDS ORDERED: BISACODYL 10 MG SUPP.RECT PR PRN (13:49)
[2016-09-09] MEDS ORDERED: DOCUSATE SODIUM 100 MG CAPSULE PO SCH (22:00)
[2016-09-10] MEDS: IBUPROFEN 800 MG TABLET PO SCH ×2 (05:40→11:07)
[2016-09-10] MEDS: OXYCODONE-ACETAMINOPHEN 5-325 MG TABLET PO PRN ×2 (05:40→11:08)
[2016-09-10] MEDS: PRENATAL VITAMIN W-O CA NO5/FE FUMARATE/FA CAPSULE PO SCH (10:54)
[2016-09-10] MEDS: DOCUSATE SODIUM 100 MG CAPSULE PO SCH (10:54)
[2016-09-10] MEDS: OXYBUTYNIN CHLORIDE 5 MG TABLET PO SCH (11:01)
[2016-09-10 13:49] VITALS: BP 123/86
== END 2016-09-10 15:55 | disposition home or self-care (01) | DRG 765 ==
LOC: LC 21:19 → EEVIPCON 21:48 → LR 21:48 → 2S 09-07 02:36
PROVIDERS: ADMIT Obstetrics & Gynecology; ATTEND Obstetrics & Gynecology
PROC: 10D00Z1 Extraction of Products of Conception, Low, Open Approach (ICD-10-PCS; principal; 2016-09-06)
PROC: 0TJB8ZZ Inspection of Bladder, Via Natural or Artificial Opening Endoscopic (ICD-10-PCS; 2016-09-07)
PROC: 30233N1 Transfusion of Nonautologous Red Blood Cells into Peripheral Vein, Percutaneous Approach (ICD-10-PCS; 2016-09-07)
PROC: 0TQB0ZZ Repair Bladder, Open Approach (ICD-10-PCS; 2016-09-07 20:00)
DX: O82 Encounter for cesarean delivery without indication (principal); O71.5 Other obstetric injury to pelvic organs; Z3A.39 39 weeks gestation of pregnancy; Z37.0 Single live birth; R31.0 Gross hematuria
CPT/HCPCS: 1961; 36415; 36430; 74430; 80048; 80053; 85025; 85027; 860; 86592; 86850; 86900; 86901; 86920; 88307; 90715; 94799; J0131; J0330; J0690; J1100; J1170; J1741; J2210; J2250; J2270; J2370; J2405; J2590; J2704; J3010; J3490; P9016; Q9968